=== PATIENT | female | born 1960 | race Caucasian/White ===

== ENCOUNTER 2024-04-24 10:51 | Inpatient (IN) | payer OTHER, MEDICAID ==
[~2024-04-24] VITALS: Ht 162.6 cm; Wt 99.8 kg
[2024-04-24 10:59] VITALS: BP 150/116; PULSE 96; RESP 21; TEMP 98.9; O2SAT 98
[2024-04-24 12:03] LABS: BASOPHILS % (AUTO) 0.3 % (0.0-2.0); EOSINOPHILS # (AUTO) 0.1 K/uL (0-0.4); EOSINOPHILS % (AUTO) 1.2 % (0.0-4.0); HEMATOCRIT 42.5 % (36-48); HEMOGLOBIN 14.5 g/dL (12.0-16.0); LYMPHOCYTES # (AUTO) 1.3 K/uL (2.5-16.5); LYMPHOCYTES % (AUTO) 13.1 % (20.5-51.1); MEAN CORPUSCULAR HEMOGLOBIN 30 pg (27-31); MEAN CORPUSCULAR HGB CONC 34 g/dL (33-37); MEAN CORPUSCULAR VOLUME 87.9 fL (80-94); MONOCYTES # (AUTO) 0.6 K/uL (0.8-1.0); MONOCYTES % (AUTO) 5.8 % (1.7-9.3); NEUTROPHILS # (AUTO) 8.1 K/uL (1.8-7.7); NEUTROPHILS % (AUTO) 79.6 % (42.2-75.2); PLATELET COUNT (AUTO) 230 K/uL (140-450); RED BLOOD CELL COUNT(AUTO) 4.83 MIL/uL (4.20-5.40); RED CELL DISTRIBUTION WIDTH 14.2 % (11.6-13.7); WHITE BLOOD COUNT (AUTO) 10.2 K/uL (4.8-10.8)
[2024-04-24] MEDS: ALUMINUM HYD/MAG/SIMETHICONE 30 ML UDC PO ONE (12:08)
[2024-04-24 12:17] LABS: ANION GAP 12.5 (8-16); CALCIUM 9.9 mg/dL (8.5-10.1); CARBON DIOXIDE 29.8 mmol/L (21-32); CREATININE 0.9 mg/dL (0.6-1.3); POTASSIUM 4.3 mmol/L (3.5-5.1)
[2024-04-24 12:21] LABS: INR 1.01 (0.8-1.2); PARTIAL THROMBOPLASTIN TIME 33.2 secs (22-35.6); PROTHROMBIN TIME 10.6 secs (10.8-13.4)
[2024-04-24 12:29] LABS: D-DIMER < 100 ng/ml (0-400)
[2024-04-24] MEDS: ACETAMINOPHEN EXTRA STRENGTH 500 MG TAB PO ONE (13:04)
[2024-04-24] MEDS: FUROSEMIDE 20 MG/2 ML VIAL IVP ONE (13:06)
[2024-04-24] MEDS: NITROGLYCERIN 0.4 MG TAB SL ONE (13:06)
[2024-04-24] MEDS ORDERED: FLEC100T1 PO (13:58)
[2024-04-24] MEDS ORDERED: APIX5TAB PO (13:58)
[2024-04-24] MEDS ORDERED: METO25TE47 PO (13:58)
[2024-04-24] MEDS ORDERED: ALPR1TAB17 PO (13:58)
[2024-04-24] MEDS ORDERED: LISI20TA29 PO (13:58)
[2024-04-24] MEDS ORDERED: ACETAMINOPHEN 325 MG TAB PO PRN (14:10)
[2024-04-24] MEDS ORDERED: MAG SULF 2000 MG/WATER PREMIX 50 ML IV PRN (14:10)
[2024-04-24] MEDS ORDERED: POLYETHYLENE GLYCOL 17 GM/PKT PO PRN (14:10)
[2024-04-24] MEDS ORDERED: POTASSIUM CHLORIDE 10 MEQ TABER PO PRN (14:10)
[2024-04-24] MEDS ORDERED: HYDROcodone/APAP 5/325 MG 1 TAB TAB PO PRN (14:10)
[2024-04-24 14:46] VITALS: BP 148/83; PULSE 90; RESP 18; TEMP 97; O2SAT 97
[2024-04-24 14:50] VITALS: PULSE 90; RESP 18; O2SAT 97
[2024-04-24] MEDS: FUROSEMIDE 40 MG/4 ML VIAL IVP SCH (15:02)
[2024-04-24 16:16] VITALS: PULSE 98
[2024-04-24] MEDS: MORPHINE SULFATE 2 MG/ML SYR IVP PRN (19:39)
[2024-04-24] MEDS: ONDANSETRON 4 MG/2 ML VIAL IVP PRN (19:41)
[2024-04-24 20:00] VITALS: BP 117/72; PULSE 109; RESP 18; RESP 19; TEMP 97.7; O2SAT 94
[2024-04-24] MEDS: MELATONIN 3 MG TAB PO PRN (21:03)
[2024-04-24] MEDS: METOPROLOL 25 MG TAB PO SCH (21:03)
[2024-04-24] MEDS: lisinopriL 20 MG TAB PO SCH (21:04)
[2024-04-24] MEDS: APIXABAN 2.5 MG TAB PO SCH (21:04)
[2024-04-24] MEDS: CRUSHER, PILL MC ONE (21:09)
[2024-04-25] VITALS: BP 95/61; PULSE 74; RESP 18; TEMP 97.8; O2SAT 97
[2024-04-25 04:00] VITALS: BP 112/69; PULSE 73; PULSE 78; RESP 18; TEMP 97.6; O2SAT 94
[2024-04-25 06:39] LABS: BASOPHILS % (AUTO) 0.6 % (0.0-2.0); EOSINOPHILS # (AUTO) 0.1 K/uL (0-0.4); EOSINOPHILS % (AUTO) 1.4 % (0.0-4.0); HEMATOCRIT 42.2 % (36-48); HEMOGLOBIN 14.3 g/dL (12.0-16.0); LYMPHOCYTES # (AUTO) 1.6 K/uL (2.5-16.5); LYMPHOCYTES % (AUTO) 25.2 % (20.5-51.1); MEAN CORPUSCULAR HEMOGLOBIN 30 pg (27-31); MEAN CORPUSCULAR HGB CONC 34 g/dL (33-37); MEAN CORPUSCULAR VOLUME 87.3 fL (80-94); MONOCYTES # (AUTO) 0.6 K/uL (0.8-1.0); MONOCYTES % (AUTO) 9.2 % (1.7-9.3); NEUTROPHILS % (AUTO) 63.6 % (42.2-75.2); PLATELET COUNT (AUTO) 258 K/uL (140-450); RED BLOOD CELL COUNT(AUTO) 4.84 MIL/uL (4.20-5.40); RED CELL DISTRIBUTION WIDTH 13.9 % (11.6-13.7); WHITE BLOOD COUNT (AUTO) 6.4 K/uL (4.8-10.8)
[2024-04-25 06:51] LABS: ALBUMIN 3.1 g/dL (3.4-5.0); ANION GAP 11.4 (8-16); CALCIUM 9.2 mg/dL (8.5-10.1); CARBON DIOXIDE 32.1 mmol/L (21-32); MAGNESIUM 2.2 mg/dL (1.8-2.4); PHOSPHORUS 5.6 mg/dL (2.5-4.9); POTASSIUM 3.5 mmol/L (3.5-5.1); TOTAL BILIRUBIN 0.9 mg/dL (0.0-1.0); TOTAL PROTEIN, SERUM 6.7 g/dL (6.4-8.2)
[2024-04-25 08:00] VITALS: BP 100/46; PULSE 113; PULSE 76; RESP 18; TEMP 97.7; O2SAT 99
[2024-04-25] MEDS ORDERED: ALPRAZOLAM PO SCH (09:00)
[2024-04-25] MEDS ORDERED: FLECAINIDE ACETATE PO SCH (09:00)
[2024-04-25] MEDS: ALPRAZolam 0.5 MG TAB PO SCH (09:05)
[2024-04-25 12:00] VITALS: BP 111/76; PULSE 80; PULSE 92; RESP 18; TEMP 97.2; O2SAT 94
[2024-04-25 16:00] VITALS: BP 113/70; PULSE 106; PULSE 86; RESP 18; TEMP 97.5; O2SAT 95
[2024-04-25 20:00] VITALS: BP 100/63; PULSE 79; RESP 18; TEMP 97.4; O2SAT 97
[2024-04-26] VITALS: BP 121/73; PULSE 69; RESP 18; TEMP 97.4; O2SAT 94
[2024-04-26 04:00] VITALS: BP 121/87; PULSE 71; PULSE 90; RESP 18; TEMP 97.4; O2SAT 94
[2024-04-26 07:17] LABS: BASOPHILS # (AUTO) 0.1 K/uL (0.00-0.22); BASOPHILS % (AUTO) 0.8 % (0.0-2.0); EOSINOPHILS # (AUTO) 0.2 K/uL (0-0.4); EOSINOPHILS % (AUTO) 2.8 % (0.0-4.0); HEMATOCRIT 43.6 % (36-48); HEMOGLOBIN 14.7 g/dL (12.0-16.0); LYMPHOCYTES # (AUTO) 2.5 K/uL (2.5-16.5); LYMPHOCYTES % (AUTO) 39.4 % (20.5-51.1); MEAN CORPUSCULAR HEMOGLOBIN 29 pg (27-31); MEAN CORPUSCULAR HGB CONC 34 g/dL (33-37); MEAN CORPUSCULAR VOLUME 87.3 fL (80-94); MONOCYTES # (AUTO) 0.6 K/uL (0.8-1.0); MONOCYTES % (AUTO) 9.6 % (1.7-9.3); NEUTROPHILS % (AUTO) 47.4 % (42.2-75.2); PLATELET COUNT (AUTO) 251 K/uL (140-450); RED CELL DISTRIBUTION WIDTH 13.8 % (11.6-13.7); WHITE BLOOD COUNT (AUTO) 6.3 K/uL (4.8-10.8)
[2024-04-26 07:35] LABS: ALBUMIN 3.1 g/dL (3.4-5.0); ANION GAP 9.9 (8-16); CALCIUM 9.2 mg/dL (8.5-10.1); CARBON DIOXIDE 34.2 mmol/L (21-32); CREATININE 0.9 mg/dL (0.6-1.3); MAGNESIUM 2.1 mg/dL (1.8-2.4); PHOSPHORUS 4.7 mg/dL (2.5-4.9); POTASSIUM 4.1 mmol/L (3.5-5.1); TOTAL BILIRUBIN 0.5 mg/dL (0.0-1.0); TOTAL PROTEIN, SERUM 6.8 g/dL (6.4-8.2)
[2024-04-26 08:00] VITALS: BP 126/84; PULSE 79; PULSE 95; RESP 18; TEMP 98.5; O2SAT 96
[2024-04-26 12:00] VITALS: BP 116/63; PULSE 68; PULSE 69; RESP 18; TEMP 98.2; O2SAT 96
== END 2024-04-26 14:20 | disposition home or self-care (01) | DRG 206 ==
LOC: MED 10:51 → MTU 13:30
PROVIDERS: ADMIT Family Medicine; ATTEND Family Medicine
DX: M94.0 Chondrocostal junction syndrome [Tietze] (principal); I10 Essential (primary) hypertension; E78.5 Hyperlipidemia, unspecified; I48.0 Paroxysmal atrial fibrillation; K21.9 Gastro-esophageal reflux disease without esophagitis; Z79.01 Long term (current) use of anticoagulants; Z79.899 Other long term (current) drug therapy
CPT/HCPCS: 36415; 71045; 80048; 80053; 83735; 83880; 84100; 84484; 85025; 85379; 85610; 85730; 87081; 93005; 93970; 96374; 99285; J1940; J2270; J2405; Q0092